=== PATIENT | male | born 1950 | race Caucasian/White ===

== ENCOUNTER 2023-11-07 06:33 | Emergency (ER) | payer MEDICARE, OTHER, SELFPAY ==
--- NOTE | ~2023-11-07 | CT_ITS ---
EXAMINATION: CT abdomen pelvis w con DATE: 11/07/2023 07:21 INDICATION: Abdominal pain. Blood in stool. TECHNIQUE: Computed tomography (CT) of the abdomen and pelvis was performed with 100 mL Omnipaque 350 intravenous contrast. Automated exposure control and iterative reconstruction technique were employe d. The dose-length product was 529.58 mGy-cm. COMPARISON: None. FINDINGS: The visualized portions of the lung bases demonstrate mild atelectasis. There is a 4 mm nod ule in left lower lobe, likely benign. No pleural effusion. The heart size is normal. There are coron lucio artery calcifications. No pericardial effusion. There is a small sliding hiatal hernia. There is mild bilateral gynecomastia. There is diffuse hepatic steatosis. The gallbladder is normal in size. T he spleen, pancreas, and left adrenal gland are normal. There is a 3.1 cm mass in right adrenal gland containing fat, consistent with a myelolipoma. There are cysts in the kidneys measuring up to 1.7 cm on the right. There are prostate is mildly enlarged. There are scattered diverticula in the colon. T here is wall thickening of the descending colon with surrounding fat stranding. The appendix is nilda l. There are no dilated loops of bowel. There is no significant stenosis of celiac axis, superior mes enteric artery, the renal arteries, or inferior mesenteric artery. Aortic atherosclerosis is noted. T here are no pathologically enlarged lymph nodes. There is no free intraperitoneal fluid. There are br idging endplate osteophytes at multiple levels in the spine, consistent with diffuse idiopathic skele oz hyperostosis (DISH). There is mild lumbar spondylosis. IMPRESSION: 1. Colitis involving the descending colon. Reviewed, dictated and finalized at location A.
[2023-11-07 06:44] VITALS: BP 132/72; PULSE 76; RESP 16; TEMP 36.4; O2SAT 97
[2023-11-07 06:52] LABS: Hematocrit 43.7 % (42.0-52.0); Hemoglobin 15.5 g/dL (14.0-18.0); Mean Corpuscular HGB Conc 35.5 g/dl (32-36); Mean Corpuscular Hemoglobin 33.3 pg (26-34); Mean Corpuscular Volume 93.8 fl (80-100); Red Blood Count 4.66 M/mm3 (4.6-6.20); Red Cell Distribution Width 12.3 % (11.5-14.5); White Blood Count 8.8 K/mm3 (4.5-10.0)
[2023-11-07 06:53] LABS: Basophils Percent Auto 0.3 % (0.2-1.2); Eosinophils Absolute Auto 0.2 K/mm3 (0-0.3); Eosinophils Percent Auto 2.1 % (0-4.4); Immature Granulocyte Absolute 0.03 K/mm3 (0.00-0.031); Immature Granulocyte Percent A 0.3 % (0-0.5); Lymphocytes Absolute Auto 2.32 K/mm3 (0.9-3.2); Lymphocytes Percent Auto 26.2 % (18.3-44.2); Mean Platelet Volume 8.9 fl (7.4-10.4); Monocytes Absolute Auto 0.7 K/mm3 (0.1-0.6); Monocytes Percent Auto 7.9 % (2.6-8.5); Neutrophils Absolute Auto 5.6 K/mm3 (1.3-6.7); Neutrophils Percent Auto 63.2 % (45.5-73.1); Platelet Count Result 187 k/mm3 (150-375)
[2023-11-07 07:01] LABS: Alanine Aminotransferase 27 U/L (6-50); Albumin Level 4.9 g/dL (3.5-5.1); Alkaline Phosphatase 102 U/L (38-126); Anion Gap 8 mmol/L (4-12); Aspartate Amino Transferase 28 U/L (17-59); Bilirubin,Total 0.6 mg/dL (0.2-1.3); Blood Urea Nitrogen 20 mg/dL (9-20); Calcium 9.6 mg/dL (8.4-10.2); Carbon Dioxide 26 mmol/L (22-30); Chloride 103 mmol/L (98-107); Estimated CRCL calculation 59 ml/min; Estimated Glomerular Filt Rate > 60; Glucose 172 mg/dL (65-110); Potassium 4.5 mmol/L (3.4-5.0); Sodium 137 mmol/L (137-145)
[2023-11-07 07:04] LABS: INR 0.9; Partial Thromboplastin Time 23.7 Seconds (22.3-36.8); Prothrombin Time 13.1 Seconds (11.1-14.7)
--- NOTE | 2023-11-07 07:16 | ED.GENADULT ---
HPI - General Adult General Chief complaint: GI Bleed Stated complaint: ABD pain, bloody stool Time Seen by Provider: 11/07/23 06:53 History of Present Illness HPI narrative: 73-year-old male presenting to the emergency department for evaluation of bloody bowel movement x2. Patient states he was having some lower abdominal pain yesterday and did pass some bloody stool this morning. Patient denies any prior history diverticulitis. Patient had a colonoscopy in 2018. Patient is not on any blood thinners. Related Data Allergies Allergy/AdvReac Type Severity Reaction Status Date / Time isosorbide [From Imdur] Allergy Dizziness Verified 11/07/23 06:34 levetiracetam [From Keppra] Allergy Dizziness Verified 11/07/23 06:34 Review of Systems Review of Systems: All systems reviewed & are unremarkable except as noted in HPI and below Exam Narrative: APPEARANCE: Well appearing, no pain, no distress, well-nourished. HEAD: normocephalic, atraumatic. EYES: PERRLA/EOMI, conjunctivae clear. NOSE: Normal no drainage EARS:TMS clear with good light reflex. THROAT: Pharynx clear, no exudate. NECK: Supple. No adenopathy, no masses. RESPIRATORY: Airway patent, respirations nonlabored. Clear to auscultation bilaterally, no rales, rhonchi, wheezing. CARDIOVASCULAR: Regular rate and rhythm without murmurs rubs or gallops. ABDOMINAL: Lower abdominal tenderness to palpation MUSCULOSKELETAL: Moves all extremities. Strength/ROM intact, No edema, No calf tenderness. NEURO: Alert. Cranial nerves II through XII intact. Good gait. Good coordination Rectal exam: Hemoccult negative SKIN: Warm, dry. Normal Color Course Vital Signs Vital signs: Vital Signs Temperature 97.5 F L 11/07/23 06:44 Pulse Rate 76 11/07/23 06:44 Respiratory Rate 16 11/07/23 06:44 Blood Pressure 132/72 11/07/23 06:44 Pulse Oximetry 97 11/07/23 06:44 Temperature 97.5 F L 11/07/23 06:44 Pulse Rate 70 11/07/23 08:24 Respiratory Rate 18 11/07/23 08:24 Blood Pressure 117/69 11/07/23 08:24 Pulse Oximetry 95 11/07/23 08:24 Medical Decision Making MDM Narrative Medical decision making narrative: 73-year-old male presenting to the emergency department for evaluation for bright red blood per rectum and lower abdominal pain. Case was discussed with GI they are comfortable with the patient having close follow-up as outpatient. Patient is afebrile with no leukocytosis and a stable hemoglobin of 15.5. Patient's INR is 0.9. No acute abnormalities on the patient's CMP. Patient and family were updated on the results of the workup and they are comfortable the plan of close follow-up with GI Differential Diagnosis Differential Diagnosis: Diverticulitis, colitis, internal hemorrhoid, external hemorrhoid, hematochezia, anemia Vital Signs Vital Signs: Vital Signs Temperature 97.5 F L 11/07/23 06:44 Pulse Rate 76 11/07/23 06:44 Respiratory Rate 16 11/07/23 06:44 Blood Pressure 132/72 11/07/23 06:44 Pulse Oximetry 97 11/07/23 06:44 Temperature 97.5 F L 11/07/23 06:44 Pulse Rate 70 11/07/23 08:24 Respiratory Rate 18 11/07/23 08:24 Blood Pressure 117/69 11/07/23 08:24 Pulse Oximetry 95 11/07/23 08:24 Lab Data Lab results reviewed: Yes I reviewed the patient's lab results. 11/07/23 06:45 11/07/23 06:45 Labs: Lab Results 11/07/23 Range/Units 06:45 WBC 8.8 (4.5-10.0) K/mm3 RBC 4.66 (4.6-6.20) M/mm3 Hgb 15.5 (14.0-18.0) g/dL Hct 43.7 (42.0-52.0) % MCV 93.8 (80-100) fl MCH 33.3 (26-34) pg MCHC 35.5 (32-36) g/dl RDW 12.3 (11.5-14.5) % Plt Count 187 (150-375) k/mm3 MPV 8.9 (7.4-10.4) fl Immature Gran % (Auto) 0.3 (0-0.5) % Neut % (Auto) 63.2 (45.5-73.1) % Lymph % (Auto) 26.2 (18.3-44.2) % [place] % (Auto) 7.9 (2.6-8.5) % Eos % (Auto) 2.1 (0-4.4) % Baso % (Auto) 0.3 (0.2-1.2) % Lymph # (Auto) 2.32 (0.9-3.2) K/mm3 [place]
[2023-11-07] MEDS: SODIUM CHLORIDE 0.9% IV 1,000 ML 999 ML IV CONT (07:36)
[2023-11-07 08:24] VITALS: BP 117/69; PULSE 70; RESP 18; O2SAT 95
[2023-11-07] MEDS: AMOXICILLIN/CLAVULANATE K 875-125 MG TAB 1 TABLET PO (08:41)
== END 2023-11-07 08:56 | disposition home or self-care (01) ==
PROVIDERS: Emergency Medicine; Emergency Provider Emergency Medicine
DX: K52.9 Noninfective gastroenteritis and colitis, unspecified (principal); K62.5 Hemorrhage of anus and rectum
CPT/HCPCS: 36415; 74177; 80053; 85025; 85610; 85730; 86850; 86900; 86901; 96360; 99284; A9270; J7030; Q9967

== ENCOUNTER 2023-12-28 00:20 | Day surgery (SDC) | payer MEDICARE, OTHER, SELFPAY ==
[2023-12-16 09:32] VITALS: BMI 29.1
--- NOTE | 2023-12-27 08:54 | PC.NURSE ---
Pt and called in this am concerned they had not done pre-op interview. Reminded they had spoken to an RN on 12/16/23. I reviewed his medications, arrival time and prep instructions. Pt verbalizes understanding.
[2023-12-28 07:16] VITALS: BP 130/88; PULSE 63; RESP 18; TEMP 36.2; O2SAT 100
[2023-12-28] MEDS: LACTATED RINGERS 1,000 ML 150 ML IV CONT (07:25)
--- NOTE | 2023-12-28 07:54 | P.PNAN_ITS ---
Anes - Initial Pre Proc Eval Procedure: Operation Date: 12/28/23 08:30 Proposed Procedures p Esophagogastroduodenoscopy & Colonoscopy - Kushal Williamson MD Date/Time: 12/28/23 07:54 Surgeon: Kushal Williamson MD Pre Op Diagnosis: Abnormalities found on imaging,Dysphagia, Patient Data Age: 73 Gender: M Height: 1.65 m Weight: 79.5 kg Last Vital Signs Temp 36.2 C L 12/28/23 07:16 Pulse 63 12/28/23 07:16 Resp 18 12/28/23 07:16 BP 130/88 12/28/23 07:16 Pulse Ox 100 12/28/23 07:16 O2 Del Method Room Air 12/28/23 07:16 Allergies Allergy/AdvReac Type Severity Reaction Status Date / Time isosorbide [From Imdur] AdvReac Dizziness Verified 12/28/23 07:22 levetiracetam [From Kera] AdvReac Dizziness Verified 12/28/23 07:22 Home Medications Medication Instructions Recorded Confirmed Type aspirin 81 mg tablet,delayed 81 mg PO DAILY 12/02/23 12/16/23 History release cholecalciferol (vitamin D3) 75 75 mcg PO DAILY 12/02/23 12/16/23 History mcg (3,000 unit) tablet coenzyme Q10 200 mg capsule 200 mg PO DAILY 12/02/23 12/16/23 History evolocumab 140 mg/mL subcutaneous 140 mg subcut .every 2 weeks 12/02/23 12/16/23 History pen injector (Repatha SureClick) losartan 25 mg tablet 12.5 mg PO DAILY 12/02/23 12/16/23 History phenytoin sodium extended 100 mg 100 mg PO BID 12/02/23 12/28/23 History capsule (Dilantin Extended) ezetimibe 10 mg tablet 10 mg PO HS 12/16/23 12/16/23 History pantoprazole 40 mg tablet,delayed 40 mg PO QAM 12/16/23 12/16/23 History release Patient hx anesthesia problems: none Family hx anesthesia problems: none Results Review: All pre-operative results and documents have been reviewed as part of the pre- operative evaluation. [facility] Past Medical History Medical History Heart attack High triglycerides History of hypertension Seizures Surgical History Surgical History History of heart artery stent Social History Social History Smoking status: Never smoker Alcohol intake: never Substance use: never Substance use type: does not use Living arrangements: other Additional living arrangements comments: with sp Niki Pandey Final PreProcedure Day of Procedure 12/28/23 07:54 Patient weight: overweight Heart: regular rate and rhythm Lungs: clear to auscultation Airway: Mallampati scale class II Neurological: alert and oriented Last oral intake: >/= 8 hours ASA classification: III Emergent: no Anesthetic plan: proceed Anesthesia type and monitoring: general GIVS and standard monitoring Results Review: All pre-operative results and documents have been reviewed as part of the pre- operative evaluation. Informed Consent: The patient's anesthetic plan and its attendant risks and benefits were discu ssed with the patient/family/POA. Questions were solicited and answers provided to the satisfaction of the patient/family/POA.
--- NOTE | 2023-12-28 08:22 | WPDHPUPDATE1 ---
History and Physical Update Update Date/Time: 12/28/23 08:22 History and Physical has been reviewed, including an updated exam of the patient. There are NO changes in the patient's condition. Risks, benefits, and alternatives have been discussed and questions answered. Patient agrees to proceed with procedure.
[2023-12-28] MEDS: BENZOCAINE (*SP) 60 ML SPRAY CAN (HURRICAINE) 1 SPRAY MUCOUS MEM (08:26)
--- NOTE | 2023-12-28 08:42 | SUR.OPER ---
EGD ended at 832, colon began at 37
[2023-12-28 08:51] VITALS: BP 118/72; PULSE 58; RESP 19; O2SAT 95
[2023-12-28 09:01] VITALS: BP 125/66; PULSE 60; RESP 18; O2SAT 98
[2023-12-28 09:11] VITALS: BP 119/68; PULSE 61; RESP 19; O2SAT 100
== END 2023-12-28 09:21 | disposition home or self-care (01) ==
PROVIDERS: Visit Provider Internal Medicine Gastroenterology
PROC: 0DJ08ZZ Inspection of Upper Intestinal Tract, Via Natural or Artificial Opening Endoscopic (ICD-10-PCS; CPT 43235; principal; 2023-12-28 08:30)
DX: Z09 Encounter for follow-up examination after completed treatment for conditions other than malignant neoplasm (principal); K21.00 Gastro-esophageal reflux disease with esophagitis, without bleeding; I10 Essential (primary) hypertension; I25.2 Old myocardial infarction; Z79.51 Long term (current) use of inhaled steroids; Z79.85 Long-term (current) use of injectable non-insulin antidiabetic drugs; Z98.890 Other specified postprocedural states; Z95.5 Presence of coronary angioplasty implant and graft; Z87.19 Personal history of other diseases of the digestive system
CPT/HCPCS: 43239; 45378; 88305; J2704; J7120